=== PATIENT | male | born 1980 | race African-American/Black ===

== ENCOUNTER 2018-07-02 17:40 | Emergency (ER) | payer MEDICAID, OTHER ==
[~2018-07-02] VITALS: Ht 193 cm; Wt 83.9 kg
[~2018-07-02 17:40] MED LIST: BACTRIM-DS1 EA PO; CEPHALEXIN500 MG PO; KEPPRA500 MG PO
[2018-07-02 17:57] VITALS: BP 113/76
[2018-07-02] MEDS ORDERED: CEPHALEXIN500 MG ORAL (18:18)
[2018-07-02] MEDS ORDERED: IBUPROFEN600 MG ORAL (18:18)
--- NOTE | 2018-07-02 18:18 | Emergency Room Report ---
History of Present Illness General Chief Complaint: Skin Rash/Abscess Source: Patient Present Illness HPI 38-year-old male patient presents the ER complaining of bump on right upper thigh times x days. Reports initially appeared to be a blister, states that he "popped it". Reports drained blood and pus earlier. Reports history of similar symptoms in the past. Denies fever, chest pain, shortness of breath, vomiting. Denies history of diabetes. Denies abdominal pain. Denies dysuria, hematuria. Denies recent sexual activity. Allergies: Coded Allergies: PHENYTOIN (Verified Allergy, Unknown, 07/02/18) Patient History Past Medical History: see triage record Reviewed Nursing Documentation: PMH: Agreed; PSxH: Agreed Nursing Documentation-PMH Past Medical History: No History, Except For Hx Seizures: Yes Review of Systems All Other Systems: negative except mentioned in HPI Physical Exam Vital Signs Date Time Temp Pulse Resp B/P (MAP) Pulse Ox O2 Delivery O2 Flow Rate FiO2 07/02/18 17:57 98.2 69 16 113/76 98 Room Air Sp02 EP Interpretation: reviewed, normal General Appearance: well appearing, no apparent distress, alert, GCS 15, non- toxic Head: normocephalic, atraumatic Eyes: bilateral eye normal inspection, bilateral eye PERRL ENT: hearing grossly normal, normal pharynx, no angioedema, normal voice, uvula midline, moist mucus membranes Neck: full range of motion Respiratory: lungs clear, normal breath sounds, no rhonchi, no respiratory distress, no accessory muscle use, no wheezing, speaking full sentences Cardiovascular #1: regular rate, rhythm, no edema Musculoskeletal: back normal, digits/nails normal, gait/station normal, normal range of motion, non-tender Neurologic: alert, oriented x3, responsive, motor strength/tone normal, sensory intact Psychiatric: mood/affect normal Skin: other - 2 cm palpable mass on right proximal thigh medially, no overlying erythema or edema, not actively draining, able to express pus, no red streaking, no fluctuance Medical Decision Making PA Attestation Dr. Robert is my supervising Physician whom patient management has been discussed with. Diagnostic Impression: Primary Impression: Abscess ER Course Pt. presents to the ED c/o bump on right inner thigh, proximal. Ddx considered but are not limited to rash, cellulitis, abscess, sebaceous cyst , carbuncle, folliculitis. Vital signs: are WNL, pt. is afebrile ED INTERVENTIONS: No fluctuance, no overlying erythema or edema, not currently draining, able to express pus and blood, do not believe patient would benefit from I&D at this time. Will discharge patient home with antibiotics. Advised patient warm compresses and sitz baths. Keep clean and dry. ER precautions given. Wound check in 2-3 days. DISCHARGE: At this time pt. is stable for d/c to home. Patient is resting comfortably, in no acute distress, nontoxic appearing. Will provide printed patient care instructions and any necessary prescriptions. Care plan and follow up instructions have been discussed with the patient prior to discharge. Patient instructed to follow-up with primary care provider in 2 - 3 days for wound recheck. Patient questions asked and answered. Patient reports understanding and agreement to treatment plan. ER precautions given. Patient instructed to return to ER immediately for any new or worsening of symptoms including but not limited to fever, worsening of pain symptoms, worsening of erythema, red streaking. - Please note that this Emergency Department Report was dictated using [employer] technology software, occasionally this can lead to erroneous entry secondary to interpretation by the dictation equipment. Last Vital Signs Date Time Temp Pulse Resp B/P (MAP) Pulse Ox O2 Delivery O2 Flow Rate FiO2 07/02/18 17:57 98.2 69 16 113/76 98 Room Air Disposition: HOME, SELF-CARE Condition: Stable Scripts Ibuprofen* (MOTRIN*) 600 Mg Tablet 600 MG ORAL Q8H PRN for For Pain, #30 TAB 0 Refills Prov: Kishor Jeffries 07/02/18 Cephalexin* (KEFLEX*) 500 Mg Capsule 500 MG ORAL EVERY 12 HOURS, #14 CAP 0 Refills Prov: Kishor Jeffries 07/02/18 Patient Instructions: Abscess Additional Instructions: Followup with PCP in 2-3 days for wound check. Take medications as instructed. Patient questions asked and answered. Apply warm compresses to affected area. Keep wound clean and dry. ER precautions given. Return to ER for new or worsening of symptoms including but not limited to chest pain, SOB, red streaking, worsening of abscess, intractable vomiting. Kishor Jeffries Jul 02, 2018 18:18
[2018-07-02 18:19] VITALS: BP 118/80
[2018-07-02 18:29] VITALS: BP 118/72
--- NOTE | 2018-07-02 18:31 | NUR ---
ER DISCHARGE NOTE: Patient is cleared to be discharged per ERMD. Patient is awake, alert, oriented x 3. D/C instruction and prescription given. Patient verbalized understanding of it. Ambulated out with steady gait.
== END 2018-07-02 18:29 | disposition home or self-care (01) ==
LOC: EMR 18:15
DX: L02.415 Cutaneous abscess of right lower limb (principal); Z88.8 Allergy status to other drugs, medicaments and biological substances
CPT/HCPCS: 99282

== ENCOUNTER 2018-10-18 13:39 | Emergency (ER) | payer MEDICAID ==
[~2018-10-18] VITALS: Ht 193 cm; Wt 83.9 kg
[~2018-10-18 13:39] MED LIST changes: +CEPHALEXIN500 MG ORAL; +IBUPROFEN600 MG ORAL
[2018-10-18 13:54] VITALS: BP 125/82
[2018-10-18] MEDS ORDERED: CEPHALEXIN500 MG ORAL (14:00)
[2018-10-18] MEDS ORDERED: BACTRIM DS TAB1 EAC1 ORAL (14:00)
[2018-10-18] MEDS ORDERED: IBUPROFEN600 MG ORAL (14:00)
--- NOTE | 2018-10-18 14:00 | NUR ---
ED Nurse Note: Pt arrived to ED c/o abcess to Rt buttock. Pt is AAOx4 respirations are even and unlabored.
[2018-10-18 14:09] VITALS: BP 125/82
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
== END 2018-10-18 14:11 | disposition home or self-care (01) ==
LOC: EMR 14:08
DX: L03.317 Cellulitis of buttock (principal); L02.31 Cutaneous abscess of buttock; Z88.8 Allergy status to other drugs, medicaments and biological substances; G40.909 Epilepsy, unspecified, not intractable, without status epilepticus
CPT/HCPCS: 99282

== ENCOUNTER 2018-10-22 23:33 | Emergency (ER) | payer MEDICAID ==
[~2018-10-22] VITALS: Ht 190.5 cm; Wt 83.9 kg
[~2018-10-22 23:33] MED LIST changes: +BACTRIM DS TAB1 EAC1 ORAL
[2018-10-22] MEDS ORDERED: KEPPRA1000 MG ORAL (23:43)
[2018-10-22 23:46] VITALS: BP 118/77
--- NOTE | 2018-10-22 23:57 | NUR ---
ED Nurse Note: Pt arrived ED from home, c/o right buttcks has a small abscess for few days. Pt is A/O X 4. Vital signs stable at this time, waiting for orders.
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
[2018-10-23] MEDS ORDERED: KEPPRA1000 MG ORAL (00:26)
--- NOTE | 2018-10-23 00:30 | NUR ---
ER DISCHARGE NOTE: Patient is cleared to be discharged per ERMD, pt is aox4, on room air, with stable vital signs. pt was given dc and prescription instructions, pt was able to verbalize understanding, pt id band removed. pt is able to ambulate with steady gait. pt took all belongings.
== END 2018-10-23 00:30 | disposition home or self-care (01) ==
LOC: EMR 23:44
DX: L02.31 Cutaneous abscess of buttock (principal); Z88.8 Allergy status to other drugs, medicaments and biological substances; L72.3 Sebaceous cyst; Z76.0 Encounter for issue of repeat prescription; Z87.820 Personal history of traumatic brain injury
CPT/HCPCS: 10060; 99282

== ENCOUNTER 2018-12-27 20:52 | Emergency (ER) | payer MEDICAID ==
[~2018-12-27] VITALS: Ht 190.5 cm; Wt 81.6 kg
[~2018-12-27 20:52] MED LIST changes: +KEPPRA1000 MG ORAL
--- NOTE | 2018-12-27 21:10 | NUR ---
ED Nurse Note: Recieved pt from home, here with c/o needing prescription refill for seizure meds, denies sz activity or any other comlaints, pt with spouse, ambulatory, nad noted.
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
[2018-12-27] MEDS ORDERED: KEPPRA1000 MG ORAL (21:11)
[2018-12-27 21:35] VITALS: BP 127/82
--- NOTE | 2018-12-27 21:35 | NUR ---
ER DISCHARGE NOTE: Patient is cleared to be discharged per ERMD, pt is aox4, on room air, with stable vital signs. pt was given dc and prescription instructions, pt was able to verbalize understanding, pt id band removed without complications. pt is able to ambulate with steady gait. pt took all belongings.
== END 2018-12-27 21:35 | disposition home or self-care (01) ==
LOC: EMR 21:09
DX: G40.909 Epilepsy, unspecified, not intractable, without status epilepticus (principal); Z88.8 Allergy status to other drugs, medicaments and biological substances
CPT/HCPCS: 80299; 99282

== ENCOUNTER 2019-08-15 17:47 | Emergency (ER) | payer MEDICAID ==
[~2019-08-15] VITALS: Ht 190.5 cm; Wt 83.9 kg
[2019-08-15 17:57] VITALS: BP 131/72
--- NOTE | 2019-08-15 18:07 | NUR ---
ED Nurse Note: Pt walked in due to abscess on his right buttock area x 3-4 days. C/O swelling, pain with tenderness. Denies fever or chills. AAO x4, ambulatory.
--- NOTE | 2019-08-15 18:32 | Emergency Room Report ---
History of Present Illness General Chief Complaint: Skin Rash/Abscess Source: Patient Present Illness HPI 39-year-old male presents to the emergency department complaining of 8 out of 10 severity localized pain, tenderness, erythema and swelling to localized area on the right buttock progressive x4 days. Patient with history of soft tissue abscess in that area in the past which required incision and drainage. Patient states his symptoms have been progressive he has been trying warm compresses with no relief. Patient denies fevers or chills. He states he is up-to-date with vaccinations. No other aggravating or relieving factors at this time. He denies drainage from the area. Allergies: Coded Allergies: PHENYTOIN (Verified Allergy, Unknown, 07/02/18) COVID-19 Screening Contact w/high risk pt: No Recent Travel to affected area: No Experienced COVID-19 symptoms?: No Patient History Past Medical History: see triage record Past Surgical History: none Pertinent Family History: none Immunizations: UTD Reviewed Nursing Documentation: PMH: Agreed; PSxH: Agreed Nursing Documentation-PMH Past Medical History: No History, Except For Hx Hypertension: No Hx Pacemaker: No Hx Asthma: No Hx COPD: No Hx Diabetes: No Hx Cancer: No Hx Gastrointestinal Problems: No Hx Dialysis: No History Of Psychiatric Problem: No Hx Neurological Problems: No Hx Cerebrovascular Accident: No Hx Seizures: Yes Review of Systems All Other Systems: negative except mentioned in HPI Physical Exam Vital Signs Date Time Temp Pulse Resp B/P (MAP) Pulse Ox O2 Delivery O2 Flow Rate FiO2 08/15/19 17:57 98.6 94 16 131/72 99 Room Air Sp02 EP Interpretation: reviewed, normal General Appearance: no apparent distress, alert, GCS 15, non-toxic Head: normocephalic, atraumatic Eyes: bilateral eye normal inspection, bilateral eye PERRL ENT: hearing grossly normal, normal voice Neck: full range of motion Respiratory: chest non-tender, lungs clear, normal breath sounds, speaking full sentences Cardiovascular #1: regular rate, rhythm Rectal: other - 2 cm soft tissue abscess of the right buttock Musculoskeletal: normal range of motion, gait/station normal, non-tender Neurologic: alert, motor strength/tone normal, oriented x3, sensory intact, responsive, speech normal Psychiatric: judgement/insight normal Skin: other - 2 cm soft tissue abscess of the right buttock- swelling, erythema , palpable fluctuance. Lymphatic: no adenopathy Procedures Incision and Drainage Incision and Drainage : Consent: Verbal Site: right buttock Blade Size: 11 I & D Procedure: betadine prep, sterile drapes applied, sterile dressing applied Wound Location: other - right buttock Wound's Depth, Shape: linear Wound Length (cm): 1 Wound Explored: contaminated - purulent d/c expressed Anesthesia: Lidocaine w/ Epi Volume Anesthetic (ccs): 2 Splint Applied?: No Sling Applied?: No Patient Tolerated: Well Complications: None Medical Decision Making PA Attestation Dr. Evans is my supervising Physician whom patient management has been discussed with. Diagnostic Impression: Primary Impression: Abscess ER Course 39-year-old male presents to the emergency department complaining of 8 out of 10 severity localized pain, tenderness, erythema and swelling to localized area on the right buttock progressive x4 days. Patient with history of soft tissue abscess in that area in the past which required incision and drainage. Patient states his symptoms have been progressive he has been trying warm compresses with no relief. Patient denies fevers or chills. He states he is up-to-date with vaccinations. No other aggravating or relieving factors at this time. He denies drainage from the area. Ddx considered but are not limited to cellulitis, abscess, cystic acne, necrotizing fasciitis, insect bite. Vital signs: are WNL, pt. is afebrile H&PE are most consistent with 2 cm soft tissue abscess of the right buttock ORDERS: none required at this time, the diagnosis is clinical ED INTERVENTIONS: -I & D. DISCHARGE: At this time pt. is stable for d/c to home. Will provide printed patient care instructions, and any necessary prescriptions. Care plan and follow up instructions have been discussed with the patient prior to discharge. Last Vital Signs Date Time Temp Pulse Resp B/P (MAP) Pulse Ox O2 Delivery O2 Flow Rate FiO2 08/15/19 17:57 98.6 94 16 131/72 (91) 99 Room Air Disposition: HOME, SELF-CARE Condition: Stable Scripts Mupirocin* (MUPIROCIN*) 22 Gm Oint...g. 1 APPLIC TOPIC THREE TIMES A DAY, #22 GM Prov: Lorrie Nicole 08/15/19 Clindamycin Hcl (CLINDAMYCIN HCL) 300 Mg Capsule 300 MG ORAL FOUR TIMES A DAY for 7 Days, #28 CAP Prov: Lorrie Nicole 08/15/19 Referrals: NON PHYSICIAN (PCP) Fidelia Corral [facility] Patient Instructions: Abscess Additional Instructions: Take medications as directed. Follow up with a Primary Care Provider in 3-5 days, even if your symptoms have resolved. --Please review list of primary care clinics, if you do not already have a primary care provider Return sooner to ED if new symptoms occur, or current symptoms become worse. - Please note that this Emergency Department Report was dictated using [employer] blender technology software, occasionally this can lead to erroneous entry secondary to interpretation by the dictation equipment. Lorrie Nicole Aug 15, 2019 18:32
[2019-08-15] MEDS ORDERED: MUPIROCIN22 GM TOPIC (18:58)
[2019-08-15] MEDS ORDERED: CLINDAMYCIN HC300 MG ORAL (18:58)
--- NOTE | 2019-08-15 19:04 | NUR ---
HAND-OFF: Report given to Luz Elena DE.
[2019-08-15 19:17] VITALS: BP 128/75
--- NOTE | 2019-08-15 19:17 | NUR ---
ER DISCHARGE NOTE: Patient is cleared to be discharged per ERMD, pt is aox4, on room air, with stable vital signs. pt was given dc and prescription instructions, pt was able to verbalize understanding, pt id band removed. pt is able to ambulate with steady gait. pt took all belongings. pt stable upon discharge.
== END 2019-08-15 19:17 | disposition home or self-care (01) ==
LOC: EMR 18:15
DX: L02.31 Cutaneous abscess of buttock (principal); Z88.8 Allergy status to other drugs, medicaments and biological substances
CPT/HCPCS: 10060; Z7502; 99283

== ENCOUNTER 2019-09-21 22:31 | Emergency (ER) | payer MEDICAID ==
[~2019-09-21] VITALS: Ht 190.5 cm; Wt 83.9 kg
[~2019-09-21 22:31] MED LIST changes: +CLINDAMYCIN HC300 MG ORAL; +MUPIROCIN22 GM TOPIC
[2019-09-21 22:38] VITALS: BP 132/88
[2019-09-21] MEDS ORDERED: KEPPRA1000 MG ORAL (22:48)
--- NOTE | 2019-09-21 22:48 | Emergency Room Report ---
History of Present Illness General Chief Complaint: Medication Refill Source: Patient Present Illness HPI This is a 39-year-old male with history of seizure. He is well controlled on Keppra. He presents with chief complaint of needing refill on his Keppra. He has been out for 1 day. Because of the COVID pandemic, his insurance changed and he is unable to get to see a doctor for refills on his medication. No seizure activity. Denies any other complaint. Allergies: Coded Allergies: PHENYTOIN (Verified Allergy, Unknown, 07/02/18) COVID-19 Screening Contact w/high risk pt: No Recent Travel to affected area: No Experienced COVID-19 symptoms?: No Patient History Past Medical History: see triage record, old chart reviewed, seizures Past Surgical History: none Pertinent Family History: none Social History: Denies: smoking Immunizations: other Reviewed Nursing Documentation: PMH: Agreed; PSxH: Agreed Nursing Documentation-PMH Hx Hypertension: No Hx Pacemaker: No Hx Asthma: No Hx COPD: No Hx Diabetes: No Hx Cancer: No Hx Gastrointestinal Problems: No Hx Dialysis: No Hx Neurological Problems: No Hx Cerebrovascular Accident: No Hx Seizures: Yes Review of Systems Eye: Denies: eye pain, blurred vision ENT: Denies: ear pain, nose congestion, throat swelling Respiratory: Denies: cough, shortness of breath Cardiovascular: Denies: chest pain, palpitations Gastrointestinal: Denies: abdominal pain, diarrhea, nausea, vomiting Musculoskeletal: Denies: back pain, joint pain Skin: Denies: rash Neurological: Denies: headache, numbness Endocrine: Denies: increased thirst, increased urine Hematologic/Lymphatic: Denies: easy bruising All Other Systems: negative except mentioned in HPI Physical Exam Vital Signs Date Time Temp Pulse Resp B/P (MAP) Pulse Ox O2 Delivery O2 Flow Rate FiO2 09/21/19 22:34 98.4 90 18 137/89 (105) 97 Room Air Vitals normal Sp02 EP Interpretation: reviewed, normal General Appearance: well appearing, no apparent distress, alert Head: normocephalic, atraumatic Eyes: bilateral eye PERRL, bilateral eye EOMI ENT: hearing grossly normal, normal pharynx Neck: full range of motion, supple, no meningismus Respiratory: chest non-tender, lungs clear, normal breath sounds Cardiovascular #1: regular rate, rhythm, no murmur Gastrointestinal: normal bowel sounds, non tender, no mass, no organomegaly, no bruit, non-distended Musculoskeletal: back normal, normal range of motion, gait/station normal Psychiatric: mood/affect normal Medical Decision Making Diagnostic Impression: Primary Impression: Encounter for medication refill ER Course Patient is here for refill on his Keppra. I gave him a dose here. He has no seizure activities. Last Vital Signs Date Time Temp Pulse Resp B/P (MAP) Pulse Ox O2 Delivery O2 Flow Rate FiO2 09/21/19 22:38 98.4 81 132/88 97 Room Air 09/21/19 22:34 18 Status: improved Disposition: HOME, SELF-CARE Condition: Stable Scripts Levetiracetam (KEPPRA) 1,000 Mg Tablet 1000 MG ORAL BID, #180 TAB 0 Refills Prov: Jaiden Canchola MD 09/21/19 Patient Instructions: Medicine Refill at the Emergency Department Additional Instructions: Follow-up with your doctor in 7 days as needed. Return if symptoms worsen. Jaiden Canchola MD September 21, 2019 22:48
[2019-09-21 22:50] VITALS: BP 128/84
== END 2019-09-21 23:20 | disposition home or self-care (01) ==
LOC: EMR 22:51
DX: Z76.0 Encounter for issue of repeat prescription (principal); G40.909 Epilepsy, unspecified, not intractable, without status epilepticus; Z79.899 Other long term (current) drug therapy; Z88.8 Allergy status to other drugs, medicaments and biological substances
CPT/HCPCS: 99282

== ENCOUNTER → 2020-03-01 | Emergency (ER) | payer MEDICAID ==
[~2020-03-01] VITALS: Ht 190.5 cm; Wt 81.6 kg
[~2020-03-01] MED LIST changes: +Bactrim-DS 1 tab ORAL ONE; +IBUPROFEN600 M1 ORAL; +Lidocaine 1% 10mg/ml/Epi 0.005mg/ml 30ml vial INJ ONE; +oxyCODONE HCL/Acetaminophen 5/325mg ORAL ONE
[2020-03-01 19:45] VITALS: BP 125/83
--- NOTE | 2020-03-01 19:45 | NUR ---
ED Nurse Note: pt presents with abscess to R buttock, states he gets recurrent ones in the same area. denies fevers/chills at this time
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
[2020-03-01 21:20] VITALS: BP 125/83
--- NOTE | 2020-03-01 21:20 | NUR ---
ER DISCHARGE NOTE: \ Patient is cleared to be discharged per ERMD, pt is aox4, on room air, with stable vital signs. pt was given dc and prescription instructions, pt was able to verbalize understanding, pt id band removed without complications. pt is able to ambulate with steady gait. pt took all belongings.
== END | disposition home or self-care (01) ==
LOC: EMR 20:15
DX: L02.31 Cutaneous abscess of buttock (principal); G40.909 Epilepsy, unspecified, not intractable, without status epilepticus; F17.200 Nicotine dependence, unspecified, uncomplicated; Z88.8 Allergy status to other drugs, medicaments and biological substances; Z79.899 Other long term (current) drug therapy
CPT/HCPCS: 10060; Z7502; 99282

== ENCOUNTER 2020-03-19 20:48 | Emergency (ER) | payer MEDICAID ==
[~2020-03-19] VITALS: Ht 190.5 cm; Wt 83.9 kg
[~2020-03-19 20:48] MED LIST changes: -Bactrim-DS 1 tab ORAL ONE; -Lidocaine 1% 10mg/ml/Epi 0.005mg/ml 30ml vial INJ ONE; -oxyCODONE HCL/Acetaminophen 5/325mg ORAL ONE
--- NOTE | 2020-03-19 21:09 | NUR ---
ED Nurse Note: pt presents to ED requesting med refill of his keppra. pt reports that he last took a dose yesterday, has not experienced a sz for several months.
[2020-03-19 21:10] VITALS: BP 119/78
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
[2020-03-19] MEDS ORDERED: KEPPRA1000 MG ORAL (21:37)
[2020-03-19 21:39] VITALS: BP 119/78
== END 2020-03-19 21:40 | disposition home or self-care (01) ==
LOC: EMR 21:12
DX: G40.909 Epilepsy, unspecified, not intractable, without status epilepticus (principal); Z76.0 Encounter for issue of repeat prescription; Z88.8 Allergy status to other drugs, medicaments and biological substances
CPT/HCPCS: 99282

== ENCOUNTER 2020-05-18 20:12 | Emergency (ER) | payer MEDICAID ==
[~2020-05-18] VITALS: Ht 190.5 cm; Wt 83.9 kg
--- NOTE | 2020-05-18 20:26 | NUR ---
ED Nurse Note: pt presents to ED for a refill on keppra 1000 mg states that he ran out last PM, has not had sz activity for one year. pt states he is working on getting a PCP for future prescription refills
[2020-05-18 20:27] VITALS: BP 121/85
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
[2020-05-18] MEDS ORDERED: KEPPRA1000 MG ORAL (20:33)
[2020-05-18 20:35] VITALS: BP 121/85
--- NOTE | 2020-05-18 20:35 | NUR ---
ER DISCHARGE NOTE: Patient is cleared to be discharged per ERMD, pt is aox4, on room air, with stable vital signs. pt was given dc and prescription instructions, pt was able to verbalize understanding, pt id band without complications. pt is able to ambulate with steady gait. pt took all belongings.
== END 2020-05-18 20:35 | disposition home or self-care (01) ==
LOC: EMR 20:32
DX: Z76.0 Encounter for issue of repeat prescription (principal); G40.909 Epilepsy, unspecified, not intractable, without status epilepticus; Z88.8 Allergy status to other drugs, medicaments and biological substances
CPT/HCPCS: 99282